=== PATIENT | female | born 1955 | race Caucasian/White ===

== ENCOUNTER → 2016-09-25 | Outpatient (CLI) | payer BC ==
[~2016-09-25] MED LIST: CIPRO PO; DICLOFENAC PO; HYDROCODON-ACE1 EACH PO; METAMUCIL1 PKT PO; NO MEDICATIONS; PHENTERMINE H37.5 M1 PO; VOLTAREN75 MG PO
--- NOTE | ~2016-09-25 | MY11 ---
[facility] A Service [facility] RADIOLOGY TEXT RESULTS PATIENT: CARIDAD DE JESUS LOCATION: [facility] : 57 UNIT #: [id number] AGE: [address]: Kota Orta MD SEX: F ORDER DR: [id number] [facility]. [place], [place] [address] [id number] O MR#: [id number] Acc #: [id number] NAME: CARIDAD DE JESUS : 1955 SEX: F STUDY DATE/TIME: 09/25/2016 15:49 UNIT: [facility] ROOM: STUDY DESCRIPTION: MY Mammogram Screening Dig Donal Attending Physician: Kota Orta Jr., M.D. Referring Physician: Kota Orta Jr., M.D. Ordering Physician: Kota Orta Jr., M.D. Primary Care Physician: Primary Care Physician No MEDICAL IMAGING REPORT This report is preliminary unless electronic signature is present EXAM Digital screening mammogram with CAD DATE 09/25/2016 HISTORY 60-year-old female with no personal or family history breast cancer. No current complaints. COMPARISON Bilateral screening mammogram 01/09/2012, 11/10/2010. TECHNIQUE CC and MLO views were obtained of each breast utilizing digital technique and reviewed with an FDA-approved CAD device. FINDINGS Scattered fibroglandular densities are present bilaterally. No new or suspicious nodules identified. No architectural distortion. No suspicious clustered microcalcification. No abnormal skin thickening or nipple retraction. IMPRESSION Screening mammogram is recommended in year. Patient's over the age of 40 are entered into a reminder system with target due date for the next mammogram. A result letter will be sent to the patient. BIRADS: 1 Negative [facility] A [facility] RADIOLOGY TEXT RESULTS PATIENT: CARIDAD DE JESUS LOCATION: [facility] : 57 UNIT #: [id number] AGE: [address]: Kota Orta MD SEX: F ORDER DR: Dictated by... Dnaica Springer M.D. THIS IS AN ELECTRONICALLY VERIFIED REPORT Danica Springer M.D. at 09/26/2016 7:[address] [facility]/prudencio TD: 09/25/2016 19:09 JOB #: [id number] MEDICAL IMAGING REPORT Page 1 of 1 COPY
== END | disposition home or self-care (01) ==
LOC: CWCC 15:11
DX: Z12.31 Encounter for screening mammogram for malignant neoplasm of breast (principal)
CPT/HCPCS: G0202

== ENCOUNTER → 2016-10-30 | Day surgery (SDC) | payer BC ==
--- NOTE | ~2016-10-30 | OR ---
Unit #: [id number] #: [id number] Patient: CARIDAD DE JESUS [id number] [place], [place] [address] [id number] O MR#: [id number] NAME: CARIDAD DE JESUS. ROOM: Date of Procedure: 10/30/2016 Admission Date: 10/30/2016 Surgeon: Kota Orta Jr., M.D. : 1955 Attending Physician: Kota Orta Jr., M.D. Primary Care Physician: Primary Care Physician No OPERATIVE REPORT INDICATIONS FOR PROCEDURE The patient is a 60-year-old white female with known past history of colon polyps. She has recently been having problems with diarrhea at times. There was a question of whether she could have some colitis, possibly recurrent polyps. She was brought in this time for repeat colonoscopy at her request. Her last scope was over 2 years ago. PREOPERATIVE DIAGNOSES Possible recurrent colon polyps and possible colitis. POSTOPERATIVE DIAGNOSIS The patient was noted to have several tiny ulcerations of the rectosigmoid area compatible with mild ulcerative colitis along with several small 1 mm polyps that all appeared benign. ANESTHESIA MAC anesthesia. PROCEDURE PERFORMED Flexible colonoscopy to the cecum with biopsies of the rectosigmoid area for path and biopsies of several small polyps of the rectosigmoid area. DESCRIPTION OF PROCEDURE The patient was positioned in [place] position with left side down after being given MAC anesthesia. A digital rectal examination was performed, which revealed no palpable mass or tenderness. No blood or stool in the rectal ampulla. The Olympus colonoscope was advanced through the anal canal up the rectum and retroflexed down to the area of the anorectal region. There was no evidence of any fissures. No significant internal hemorrhoids. The scope was then straightened and advanced up the rectosigmoid, where at approximately 15 cm, there were multiple tiny 1 mm polyps that all appeared benign as well as several small ulcerations that appeared to be minimal ulcerative colitis involving this area. Several biopsies were taken for pathology of this as well as biopsies from the polyps. There was no evidence of any bleeding from the biopsy sites. The scope was then advanced up into the sigmoid and descending colon areas, around the splenic flexure, the transverse colon, around the hepatic flexure and ascending colon, down the area of the cecum. The light tip of the scope could be seen transilluminating through right lower quadrant abdominal wall area. Multiple attempts in advancing the scope up the distal ileum were unsuccessful. The scope was slowly removed. There were no other polyps noted except for those described above and no other areas Unit #: [id number] #: [id number] Patient: CARIDAD DE JESUS of colitis. There were no tumors, no cancer and no AVMs. No evidence of any diverticulosis or diverticulitis. The caliber of the colon appeared normal throughout. The scope was removed. The patient tolerated the procedure well and discharged in satisfactory condition. Dictated by... Kota Orta Jr., MChula. LOLIS/abby TD: 10/30/2016 11:05 JOB #: [id number] OPERATIVE REPORT Page 1 of 1 X Kota Orta MD X PROCEDURE OPERATIVE NOTE
== END | disposition home or self-care (01) ==
LOC: COPS 05:40
DX: K63.3 Ulcer of intestine (principal); D12.7 Benign neoplasm of rectosigmoid junction; Z86.010 Personal history of colon polyps; R19.7 Diarrhea, unspecified; Z90.711 Acquired absence of uterus with remaining cervical stump
CPT/HCPCS: 88305; J2250